=== PATIENT | female | born 1965 | race Caucasian/White ===

== ENCOUNTER 2025-08-11 11:29 | Observation (INO) ==
[2025-08-11] MEDS ORDERED: TYLENOL 325 MG TAB PO PRN (11:30)
[2025-08-11] MEDS ORDERED: MORPHINE SULFATE INJ 2 MG INJ IVP PRN (11:30)
[2025-08-11] MEDS ORDERED: NORCO 5/325 MG TAB PO PRN (11:30)
[2025-08-11] MEDS ORDERED: ULTRAM PO PRN (11:30)
--- NOTE | 2025-08-11 12:35 | DR.H&P ---
H&P History & Physical for Day of: H&P Date: 08/11/25 Chief Complaint Chief Complaint: co "worms under her skin" History of Present Illness History of Present Illness: PT IS 59 WF, DIRECT ADMIT WITH NEW ONSET VISUAL HALLUCINATIONS ONSET ONE WEEK AGO AFTER LOSS OF HER GRANDSON. PT'S SPOUSE IS WITH HER AND STATES SHE HAS NOT BEEN EATING OR DRINKING WELL, NOT SLEEPING GOOD SINCE IN THE FAMILY. PT HAS BEEN SEEING THINGS, CO WORMS UNDER HER SKIN AND ON HER CLOTHES. PT IS NOT ON ANY PRESCRIPTION MEDICATION AT THIS TIME. HER BP AND HEART RATE WERE ELEVATED IN THE OFFICE. PT DENIES ANY SUICIDAL OR HOMICIDAL IDEATIONS. PT WAS CLEAN AND WELL GROOMED. PT HAS PMH OF ANXIETY AND DEPRESSION YEARS AGO. Review of Systems Constitutional: Malaise Eyes: No Symptoms Reported ENT: No Symptoms Reported Respiratory: No Symptoms Reported Cardiovascular: Palpitations Gastrointestinal: Other (LOSS OF APPETITE) Genitourinary: No Symptoms Reported Musculoskeletal: No Symptoms Reported Skin: Wound (REDNESS TO LEFT THUMB AT NAILBED) Neurological: Confusion and Other (VISUAL HALLUINATIONS) Oriented: Time, Person and Place Eyes: Normal Ear: Normal Nose: Normal Throat: Dry Respiratory: RLL Diminished and LLL Diminished Cardiovascular: Tachycardia Auscultation: Bowel Sounds: Normal Palpation: Normal Tenderness: Normal Skin: Decreased Turgur and Wound (MILD RENESS TO LEFT THUMBNAIL MED) Psychiatric: Anxiety and Depression Mood Description: Sad and Anxious Speech Pattern: Clear and Appropriate (BOTH APPROPRIATE AND INAPPROPRIATE RESPONSES) Assessment/Plan (1) Visual hallucinations: Narrative Support Text: ACUTE ONSET Status: Acute Plan: ADMIT, CT HEAD WO BP CONTROL, IV HYDRATION UC AND CBC, CMP, EKG UDS ON ADMISSION, CXR REVIEW HOME MEDICATIONS (2) Dehydration: Status: Acute (3) Elevated blood pressure reading without diagnosis of hypertension: Status: Acute (4) Tachycardia: Status: Acute
[2025-08-11] MEDS: NS 1,000 ML IV 1,000 ML ONE (13:05)
[2025-08-11] MEDS: NS 1,000 ML IV 1,000 ML IV SCH (13:06)
--- NOTE | 2025-08-11 13:06 | EKG ---
Test Reason : Tachycardia Blood Pressure : */* mmHG Vent. Rate : 96 BPM Atrial Rate : 96 BPM P-R Int : 140 ms QRS Dur : 80 ms QT Int : 354 ms P-R-T Axes : 50 -2 31 degrees QTc Int : 447 ms Normal sinus rhythm Normal ECG No previous ECGs available Confirmed by Ashutosh Santana MD ([id number]) on 08/11/2025 5:15:56 PM Referred By: Confirmed By: Ashutosh Santana MD
[2025-08-11 13:44] LABS: MEAN PLATELET VOLUME 7.8 fL (7.4-11.0); RED CELL DISTRIBUTION WIDTH 14.1 % (11.6-16.5)
[2025-08-11 13:46] LABS: BLOOD/HEMOGLOBIN,URINE NEGATIVE (NEGATIVE); LEUKOCYTE ESTERASE ,URINE 1+ (NEGATIVE); NITRITES,URINE NEGATIVE (NEGATIVE)
[2025-08-11 14:04] LABS: CREATININE 0.86 mg/dL (0.55-1.02); eGFR NON BLACK RACES > 60 (>60)
[2025-08-11 14:05] LABS: APPEARANCE,URINE CLEAR (CLEAR); SQUAMOUS EPITHELIAL CELL,UR RARE /HPF (NEGATIVE)
--- NOTE | 2025-08-11 16:15 | RAD ---
EXAM: CHEST, 1 VIEW HISTORY: TACHYCARDIA; COMPARISON: No relevant prior studies were available for comparison at the time of interpretation. TECHNIQUE: CHEST, 1 VIEW FINDINGS: Chest: Lines and tubes: None Mediastinum: Cardiac and mediastinal shadow is within normal limits for size and contour. Pulmonary vessels: No pulmonary vascular congestion. Lung crenshaw: No suspicious airspace opacity. Pleura: No effusion. No pneumothorax. Bones and soft tissues: No acute osseous or soft tissue abnormality. IMPRESSION: 1. No acute cardiopulmonary abnormality THIS IS AN ELECTRONICALLY VERIFIED FINAL REPORT 08/11/2025 4:03 PM - Electronically signed by Gera Celaya MD
--- NOTE | 2025-08-11 16:19 | CT ---
EXAM: BRAIN W/O CON HISTORY: Hallucinations COMPARISON: None. TECHNIQUE: CT of the brain without contrast FINDINGS: No hemorrhage or extra-axial collection. No midline shift or mass effect. No skull fracture or suspicious bony lesion. Mucous retention cyst versus polyp in the sphenoid sinus spanning 1.4 cm. No sinus air-fluid levels. Normal ventricular size. Normal camarena-white matter differentiation. IMPRESSION: Negative study. All CT scans at this facility use dose modulation, iterative reconstruction, and/or weight based dosing when appropriate to reduce radiation dose to as low as reasonably achievable. THIS IS AN ELECTRONICALLY VERIFIED FINAL REPORT 08/11/2025 4:16 PM - Electronically signed by Valentin Prieto MD
[2025-08-11] MEDS: VISTARIL PO SCH (17:23)
[2025-08-12 00:54] VITALS: TEMP 98
[2025-08-12 05:54] LABS: MEAN PLATELET VOLUME 7.7 fL (7.4-11.0); RED CELL DISTRIBUTION WIDTH 14.0 % (11.6-16.5)
[2025-08-12 06:08] LABS: CHOL/HDL RATIO 3.7 (0.0-5.0); COR CA(FOR HYPOALB) 9.2 mg/dL (8.5-10.1); CREATININE 0.75 mg/dL (0.55-1.02); eGFR NON BLACK RACES > 60 (>60)
[2025-08-12 07:45] VITALS: BP 132/91; PULSE 101; RESP 18; O2SAT 97
== END 2025-08-12 11:00 | disposition home or self-care (01) ==
LOC: MED/SURG
PROVIDERS: ADMIT Internal Medicine; ATTEND Internal Medicine
DX: E86.0 Dehydration; E78.5 Hyperlipidemia, unspecified; R79.89 Other specified abnormal findings of blood chemistry; F41.8 Other specified anxiety disorders; M19.90 Unspecified osteoarthritis, unspecified site; R03.0 Elevated blood-pressure reading, without diagnosis of hypertension; R44.1 Visual hallucinations; R00.0 Tachycardia, unspecified; Z72.0 Tobacco use; R82.998 Other abnormal findings in urine; F15.90 Other stimulant use, unspecified, uncomplicated